=== PATIENT | male | born 1960 | race African-American/Black ===

== ENCOUNTER 2023-01-06 00:34 | Day surgery (SDC) | payer OTHER, SELFPAY ==
[2022-12-24 10:37] VITALS: BMI 24.7
--- NOTE | 2023-01-05 15:09 | P.HP_ITS ---
History of Present Illness History of Present Illness Consent: Risks, benefits, and alternatives have been discussed and questions answered. Patient agrees to proceed with procedure. Chief complaint: neoplasm screening Narrative: Anibal Renae Jr. is a 62 year old male Referred for colon cancer screening. It has been 10 years since his last colonoscopy. Review of Systems Review of Systems: All systems reviewed & are unremarkable except as noted in HPI and below PMFSH Past Medical History Medical History No significant past medical history Surgical History Surgical History No significant past surgical history Social History Social History Smoking status: Never smoker Alcohol intake: current Alcohol use details: occasional Substance use: never Substance use type: does not use Living arrangements: with family Spiritual care concerns: No Meds Home Medications and Allergies Home Medications Medication Instructions Recorded Confirmed Type amino acids 1 cap PO DAILY 12/24/22 01/06/23 History anastrozole 1 mg tablet 1 mg PO QMWF 12/24/22 01/06/23 History aspirin 81 mg capsule 81 mg PO DAILY 12/24/22 01/06/23 History losartan 100 mg tablet 100 mg PO DAILY 12/24/22 01/06/23 History metformin 500 mg tablet,extended 1,000 mg PO DAILY 12/24/22 01/06/23 History release 24 hr multivitamin with minerals-folic 1 tablet PO DAILY 12/24/22 01/06/23 History acid 0.4 mg tablet omega-3 fatty acids 1 cap PO DAILY 12/24/22 01/06/23 History thyroid (pork) 300 mg tablet 150 mg PO DAILY 12/24/22 01/06/23 History ([place] Thyroid) Allergies Allergy/AdvReac Type Severity Reaction Status Date / Time No Known Allergies Allergy Verified 01/06/23 07:38 Exam Const: General: alert Orientation/consciousness: patient oriented x3 Resp: Auscultation: clear to auscultation bilaterally Cardio: Rhythm: regular rhythm GI: GI Palp: Yes Soft to palpation and No Tenderness to palpation present (GI) Neuro: General: patient oriented x3 Assessment and Plan Assessment and plan (1) Colon cancer screening: Code(s): Z12.11 - Encounter for screening for malignant neoplasm of colon Status: Acute Assessment and Plan: Colonoscopy with possible biopsy or polypectomy or cautery or injection of substances.
[2023-01-06 07:39] VITALS: BP 121/79; PULSE 75; RESP 16; TEMP 36.1; O2SAT 99; BMI 24.5
[2023-01-06] MEDS: LACTATED RINGERS 1,000 ML 150 ML IV CONT (07:50)
--- NOTE | 2023-01-06 08:16 | P.PNAN_ITS ---
Anes - Initial Pre Proc Eval Procedure: Operation Date: 01/06/23 09:00 Proposed Procedures p Screening Colonoscopy - Glynn Michel MD Date/Time: 01/06/23 08:16 Surgeon: Glynn Michel MD Pre Op Diagnosis: neoplasm screening Patient Data Age: 62 Gender: M Height: 1.88 m Weight: 86.8 kg Last Vital Signs Temp 97 F L 01/06/23 07:39 Pulse 75 01/06/23 07:39 Resp 16 01/06/23 07:39 BP 121/79 01/06/23 07:39 Pulse Ox 99 01/06/23 07:39 O2 Del Method Room Air 01/06/23 07:39 Allergies Allergy/AdvReac Type Severity Reaction Status Date / Time No Known Allergies Allergy Verified 01/06/23 07:38 Home Medications Medication Instructions Recorded Confirmed Type amino acids 1 cap PO DAILY 12/24/22 01/06/23 History anastrozole 1 mg tablet 1 mg PO QMWF 12/24/22 01/06/23 History aspirin 81 mg capsule 81 mg PO DAILY 12/24/22 01/06/23 History losartan 100 mg tablet 100 mg PO DAILY 12/24/22 01/06/23 History metformin 500 mg tablet,extended 1,000 mg PO DAILY 12/24/22 01/06/23 History release 24 hr multivitamin with minerals-folic 1 tablet PO DAILY 12/24/22 01/06/23 History acid 0.4 mg tablet omega-3 fatty acids 1 cap PO DAILY 12/24/22 01/06/23 History thyroid (pork) 300 mg tablet 150 mg PO DAILY 12/24/22 01/06/23 History ([place] Thyroid) Patient hx anesthesia problems: none Family hx anesthesia problems: none Results Review: All pre-operative results and documents have been reviewed as part of the pre- operative evaluation. FORMERLY [facility], [facility] Past Medical History Medical History (Updated 01/05/23 @ 15:09 by Glynn Michel MD) No significant past medical history Surgical History Surgical History (System 04/20/19 @ 15:01 by Ama Foreman) No significant past surgical history Social History Social History (System 04/20/19 @ 15:01 by Ama Foreman) Smoking status: Never smoker Alcohol intake: current Alcohol use details: occasional Substance use: never Substance use type: does not use Living arrangements: with family Spiritual care concerns: No Anes - Eval Final PreProcedure Day of Procedure 01/06/23 08:16 Patient weight: normal Heart: regular rate and rhythm Lungs: clear to auscultation Airway: Mallampati scale class II Neurological: alert and oriented Last oral intake: >/= 8 hours ASA classification: II Emergent: no Anesthetic plan: proceed Anesthesia type and monitoring: general GIVS and standard monitoring Results Review: All pre-operative results and documents have been reviewed as part of the pre- operative evaluation. Informed Consent: The patient's anesthetic plan and its attendant risks and benefits were discussed with the patient/family/POA. Questions were solicited and answers provided to the satisfaction of the patient/family/POA.
--- NOTE | 2023-01-06 08:16 | SUR.PREOP ---
Patient is not on metformin for diabetes, it is part of his hormone regimen.
[2023-01-06 09:13] VITALS: BP 98/66; PULSE 62; RESP 16; O2SAT 99
[2023-01-06 09:23] VITALS: BP 103/68; PULSE 64; RESP 18; O2SAT 100
[2023-01-06 09:33] VITALS: BP 122/87; PULSE 62; RESP 18; O2SAT 99
== END 2023-01-06 09:37 | disposition home or self-care (01) ==
PROVIDERS: PCP Internal Medicine; Visit Provider Internal Medicine Gastroenterology
PROC: 0DJD8ZZ Inspection of Lower Intestinal Tract, Via Natural or Artificial Opening Endoscopic (ICD-10-PCS; CPT 45378; principal; 2023-01-06 09:00)
DX: Z12.11 Encounter for screening for malignant neoplasm of colon (principal); K64.8 Other hemorrhoids
CPT/HCPCS: 45378; J2704; J7120